=== PATIENT | female | born 2000 | race Two or more races ===

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

== ENCOUNTER 2023-05-10 07:31 | Outpatient (CLI) | payer OTHER | END 2023-05-10 07:37 | disposition home or self-care (01) | LOC: LAB 07:31 | PROVIDERS: ATTEND Obstetrics & Gynecology | DX: R10.9 Unspecified abdominal pain (principal); E04.0 Nontoxic diffuse goiter; N32.1 Vesicointestinal fistula ==

== ENCOUNTER 2023-05-10 08:21 | Outpatient (CLI) | payer OTHER | END 2023-05-10 08:32 | disposition home or self-care (01) | LOC: SONOGRAMA 08:21 | PROVIDERS: ATTEND Obstetrics & Gynecology | DX: R10.9 Unspecified abdominal pain (principal); N92.1 Excessive and frequent menstruation with irregular cycle ==

== ENCOUNTER → 2023-11-15 07:44 | Outpatient (CLI) | payer OTHER ==
[2023-11-15 08:14] LABS: HEMATOCRIT 37.7 % (36.0-45.00); HEMOGLOBIN 13.1 g/dL (12.0-15.00); MEAN CELL VOLUME 88.9 fL (80.00-100.00); MEAN CORPUSCULAR HEMOGLOBIN 30.8 pg (27.00-32.0); MEAN CORPUSCULAR HGB CONC 34.6 g/dl (32.0-36.0); PLATELET COUNT 259 K/uL (150-450); RED BLOOD COUNT 4.24 M/uL (4.00-6.00); RED CELL DISTRIBUTION WIDTH 13.5 % (11.5-14.5)
[2023-11-15 08:43] LABS: URINE APPEARANCE Clear; URINE BILIRRUBIN Negative (NEGATIVE); URINE BLOOD Negative; URINE COLOR Yellow; URINE GLUCOSE Negative (NEGATIVE); URINE LEUKOCYTE Negative; URINE NITRATE Negative; URINE PROTEIN Negative (NEGATIVE); URINE UROBILINOGEN 0.2 E.U./dl
[2023-11-15 08:44] LABS: URINE BACTERIA 269.6 uL (0.0-1933); URINE EPITHELIAL CELLS 17.9 uL (0.0-38.8); URINE RBC 12.2 uL (0.0-20.8); URINE WBC 9.1 uL (0.0-23.2)
[2023-11-15 09:01] LABS: ALBUMIN 3.9 gm/dL (3.4-5.0); BILIRUBIN TOTAL 0.46 mg/dL (0.3-1.2); CALCIUM 9.5 mg/dL (8.5-10.1); CHOL HDL RATIO 2.7 (0-5.0); CREATININE SERUM 0.7 mg/dL (0.55-1.02); GFR 105.63; GLOBULINA 2.7 G/DL (2.4-3.5); POTASSIUM 4.11 mEq/L (3.5-5.1); TOTAL PROTEIN 6.6 gm/dL (6.4-8.2); TSH 1.75 uIU/mL (0.358-3.74)
== END | disposition home or self-care (01) ==
LOC: LAB 07:44 → RAD 07:44
PROVIDERS: ATTEND Specialist
DX: I10 Essential (primary) hypertension (principal); E78.2 Mixed hyperlipidemia; E03.8 Other specified hypothyroidism; J44.9 Chronic obstructive pulmonary disease, unspecified; R05.9 Cough, unspecified

== ENCOUNTER 2023-11-15 08:13 | Outpatient (CLI) | payer OTHER | END 2023-11-15 08:18 | disposition home or self-care (01) | LOC: SONOGRAMA 08:13 | PROVIDERS: ATTEND Specialist | DX: E04.1 Nontoxic single thyroid nodule (principal) ==